=== PATIENT | male | born 1955 | race Caucasian/White ===

== ENCOUNTER 2024-06-21 09:12 | Outpatient (REF) | payer MEDICARE, OTHER, SELFPAY ==
--- NOTE | ~2024-06-21 | XR_ITS ---
EXAMINATION: Radiographic bilateral knees CLINICAL INFORMATION: Pain. COMPARISON: None available. TECHNIQUE: 2 views of each knee in addition to frontal standing views of both knees. FINDINGS: No acute fracture or malalignment. Mild joint space narrowing of the medial and patellofemoral compartments in both knees. Small upper patellar spurring in both knees. No osseous erosions. No chondrocalcinosis. Trace joint effusion in the right knee. XR/XR knee RT 3V IMPRESSION: 1. No acute fracture or malalignment. 2. Mild bilateral degenerative osteoarthritis. 3. Trace joint effusion in the right knee. Electronically signed by: Loulou Brumfield MD 07/15/2024 12:33 PM EDT
--- NOTE | ~2024-06-21 | XR_ITS ---
EXAMINATION: Radiographic bilateral knees CLINICAL INFORMATION: Pain. COMPARISON: None available. TECHNIQUE: 2 views of each knee in addition to frontal standing views of both knees. FINDINGS: No acute fracture or malalignment. Mild joint space narrowing of the medial and patellofemoral compartments in both knees. Small upper patellar spurring in both knees. No osseous erosions. No chondrocalcinosis. Trace joint effusion in the right knee. XR/XR knee LT 3V IMPRESSION: 1. No acute fracture or malalignment. 2. Mild bilateral degenerative osteoarthritis. 3. Trace joint effusion in the right knee. Electronically signed by: Loulou Brumfield MD 07/15/2024 12:33 PM EDT
== END 2024-06-21 09:13 | disposition home or self-care (01) ==
LOC: HO.HOSX 09:12
PROVIDERS: Visit Provider Orthopaedic Surgery
DX: M25.562 Pain in left knee (principal); M25.561 Pain in right knee
CPT/HCPCS: 73562

== ENCOUNTER 2024-06-21 09:34 | Outpatient (AMB) | payer MEDICARE, OTHER, SELFPAY ==
[2024-06-21 10:00] VITALS: BMI 33.6
--- NOTE | 2024-06-21 10:00 | A.OFFVIS_ITS ---
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 Patient reports that he has had ongoing bilateral knee pain for about 3 months now. The left knee experiences swelling and mild pain, the right knee is more of a sharp pain but no swelling. His PCP prescribed him Naproxen and he has been taking this with relief. 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 Patient reports that he has had ongoing bilateral knee pain for about 3 months now. The left knee experiences swelling and mild pain, the right knee is more of a sharp pain but no swelling. His PCP prescribed him Naproxen and he has been taking this with relief. PFSH Surgical History (Updated 06/21/24 @ 10:04 by Stephanie Chairez CMA) Hx of hernia repair Social History (Updated 06/21/24 @ 10:05 by Stephanie Chairez CMA) Current occupational status: employed Physical Exam Vital Signs: BMI result Body Mass Index 33.6 Extrem Other: Mild tenderness to palpation medial compartment bilateral knees. He walks comfortably. He is very mild flexion contractures bilaterally with a varus alignment but full range of motion and stable ligamentous exam Results Reviewed Results Reviewed: I personally reviewed relevant radiographs. A mild medial compartment osteoarthritis bilateral knees Assessment & Plan Assessment & Plan (1) Bilateral primary osteoarthritis of knee: Code(s): M17.0 - Bilateral primary osteoarthritis of knee Category: Medical Plan: This is a 68-year-old gentleman with bilateral knee osteoarthritis. It is mild and his symptoms are mild and I do not recommend intervention at this time. I recommend he remain active and reviewed some exercises with him. If he does have pain we can consider injections but at this point that is not necessary. He expressed understanding. All of his questions were answered. He may follow up as needed. Orders: Orders XR knee LT 3V 06/21/24 M25.562 - Pain in left knee XR knee RT 3V 06/21/24 M25.561 - Pain in right knee Coding Level of Care Code New Pt Level 3 (08665) Diagnoses Bilateral primary osteoarthritis of knee M17.0
== END 2024-06-21 10:43 | disposition home or self-care (01) ==
PROVIDERS: PCP Nurse Practitioner Family; Visit Provider Orthopaedic Surgery
DX: M17.0 Bilateral primary osteoarthritis of knee (principal)
CPT/HCPCS: 99203